=== PATIENT | female | born 1995 ===

== ENCOUNTER 2021-02-06 13:33 | Emergency (ER) | payer MEDICAID, SELFPAY ==
[2021-02-06 13:42] VITALS: BP 120/68; PULSE 75; RESP 16; TEMP 36.2; O2SAT 100
--- NOTE | 2021-02-06 14:28 | ED.URI ---
HPI - URI/Sore Throat General Chief Complaint: Upper Respiratory Infection Stated Complaint: cough/congestion Time Seen by Provider: 02/06/21 14:09 Source: patient and RN notes reviewed Mode of arrival: ambulatory Limitations: no limitations History of Present Illness HPI Narrative: Patient presents today complaining of a 3-day history of severe nasal congestion, cough, subjective fever with sweats, sore throat. History of recent sinus surgery with turbinate reduction a few months ago. She has been using Sudafed and allergy medication without relief. MD elicited complaint: cough, sore throat, nasal congestion and sinus pain Related Data Allergies Allergy/AdvReac Type Severity Reaction Status Date / Time No Known Allergies Allergy Verified 02/06/21 14:03 Review of Systems Review of Systems: Narrative: CONSTITUTIONAL: Denies body aches, chills. + Subjective fever with sweats EYES: Denies visual changes, redness, or discharge. ENT: Denies otalgia.+ Congestion, rhinorrhea, sore throat CARDIOVASCULAR: Denies chest pain, palpitations, or edema. RESPIRATORY: Denies dyspnea. + Cough GASTROINTESTINAL: Denies abdominal pain, nausea, vomiting, or diarrhea. GENITOURINARY: Denies dysuria or hematuria. SKIN: Denies rash, itching, or wounds. MUSCULOSKELETAL: Denies back pain, joint pain, or myalgia. NEUROLOGIC: Denies headache, numbness, tingling, or weakness. PSYCH: Denies depression or anxiety. FOR[facility]LY [facility] Surgical History Surgical History (Updated 02/06/21 @ 19:48 by Paris Che, [facility], ) H/O sinus surgery Comments At time of signature, I have reviewed and agree with nursing past medical, surgical, social and family history unless otherwise noted. Please see nursing chart for further information. There is no relevant family history pertinent to the presenting complaint Exam Narrative: Exam Narrative: GENERAL: Mildly ill-appearing, well-nourished, and in no acute distress. HEAD: Normocephalic, atraumatic. EYES: EOMI. No redness or drainage. Conjunctivae normal. ENT: Mucous membranes pink and moist. Nares severely congested. Significantly edematous nasal turbinates. + Rhinorrhea. TMs normal bilaterally. Throat mildly edematous with small amount of postnasal drainage.. Uvula midline. NECK: Normal AROM. Supple. No lymphadenopathy. CHEST: No respiratory distress. Clear to auscultation. HEART: Regular rate and rhythm. No murmur appreciated. Normal peripheral pulses. EXTREMITIES: Normal range of motion. No edema. SKIN: Warm, dry, no rash. Capillary refill normal. Normal skin turgor. NEURO: No focal deficits. Alert and oriented x3. Gait steady. PSYCH: Normal affect. No signs of depression or anxiety. Course Course Emergency Course: Due to patient's exam and history of recent sinus surgeries, I feel it indicated to treat her with antibiotics at this time for presumed bacterial sinusitis. Vital Signs Vital signs: Vital Signs Temperature 97.2 F L 02/06/21 13:42 Pulse Rate 75 02/06/21 13:42 Respiratory Rate 16 02/06/21 13:42 Blood Pressure 120/68 02/06/21 13:42 Pulse Oximetry 100 02/06/21 13:42 Temperature 97.2 F L 02/06/21 13:42 Pulse Rate 75 02/06/21 13:42 Respiratory Rate 16 02/06/21 13:42 Blood Pressure 120/68 02/06/21 13:42 Pulse Oximetry 100 02/06/21 13:42 Reviewed MDM - URI/Sore Throat Differential Diagnosis Differential diagnosis: Likely upper respiratory infection, sinusitis, viral infection and other (Rhinitis, seasonal allergies) Lab Data Attestation: I reviewed the patient's lab results. Labs: Lab Results 02/06/21 Range/Units 14:00 POC SARS CoV-2 Ag Negative (Negative) Critical Care Time Critical Care Time Critical Care Time: No Discharge Plan Discharge Clinical Impression: Sinusitis Qualifiers: Sinusitis location: frontal Chronicity: acute Recurrence: not specified as recurrent Qualified Code(s): J01.10 - Acute frontal sinusitis, unspecified
== END 2021-02-06 14:33 | disposition home or self-care (01) ==
PROVIDERS: Emergency Provider Nurse Practitioner
DX: J01.10 Acute frontal sinusitis, unspecified (principal); Z20.822 Contact with and (suspected) exposure to COVID-19
CPT/HCPCS: 87426; 99203; C9803; G0463